=== PATIENT | female | born 1950 ===

== ENCOUNTER 2018-09-24 05:14 | Inpatient (IN) ==
[~2018-09-24 05:14] MED LIST: VANCOMYCIN INJ 1,000 MG in SODIUM CHLORIDE 0.9% 250 ML IV ONE; ceFAZolin 1,000 MG in SYRINGE 1 EACH IV ONE
[2018-09-24] MEDS ORDERED: VANCOMYCIN INJ 1,000 MG in SODIUM CHLORIDE 0.9% 250 ML IV ONE (06:00)
[2018-09-24] MEDS ORDERED: CLINDAMYCIN INJ 900 MG in PREMIX 1 EACH IV ONE (06:00)
[2018-09-24] MEDS: LACTATED RINGERS 1,000 ML IV SCH (06:26)
[2018-09-24] MEDS ORDERED: ACETAMINOPHEN 500 MG TABLET PO ONE (06:33)
[2018-09-24] MEDS ORDERED: GABAPENTIN 400 MG CAPSULE PO ONE (06:33)
[2018-09-24] MEDS ORDERED: diphenhydrAMINE CAP 25 MG CAPSULE PO PRN (07:10)
[2018-09-24] MEDS ORDERED: TEMAZEPAM 7.5 MG CAPSULE PO PRN (07:10)
[2018-09-24] MEDS ORDERED: PROMETHAZINE 25 MG/1 ML VIAL IM PRN (07:10)
[2018-09-24] MEDS ORDERED: MORPHINE 4 MG/1 ML VIAL IV PRN ×3 (07:10→10:00)
[2018-09-24] MEDS ORDERED: oxyCODONE/ACETAMINOPHEN 5-325 MG TABLET PO PRN (07:10)
[2018-09-24] MEDS ORDERED: LACTULOSE 20 GM/30 ML UDCUP PO PRN (07:10)
[2018-09-24] MEDS ORDERED: BISACODYL 10 MG SUPP RECTAL PRN (07:10)
[2018-09-24] MEDS: MELOXICAM 7.5 MG TABLET PO SCH (10:35)
[2018-09-24] MEDS: CHLORTHALIDONE 25 MG TABLET PO SCH (10:35)
[2018-09-24] MEDS: POTASSIUM CHLORIDE 20 MEQ TABLET PO SCH (10:35)
[2018-09-24] MEDS: amLODIPine 10 MG TABLET PO SCH (10:35)
[2018-09-24] MEDS: MULTIVITAMIN (CENTRUM) TABLET PO SCH (10:35)
[2018-09-24] MEDS: DOCUSATE SODIUM 100 MG CAPSULE PO SCH ×2 (10:35→21:19)
[2018-09-24] MEDS: DICLOFENAC 1% GEL 100 GM TUBE TOP SCH ×2 (10:36→22:19)
[2018-09-24] MEDS: oxyCODONE/ACETAMINOPHEN 5-325 MG TABLET PO PRN ×2 (12:55→20:23)
[2018-09-24] MEDS: CLINDAMYCIN INJ 900 MG in PREMIX 1 EACH IV SCH ×2 (14:14→21:19)
[2018-09-24] MEDS: FONDAPARINUX 2.5 MG/0.5 ML SYRINGE SUBCUT SCH (17:42)
[2018-09-25] MEDS: LACTATED RINGERS 1,000 ML IV SCH ×2 (00:13→06:32)
[2018-09-25] MEDS: oxyCODONE/ACETAMINOPHEN 5-325 MG TABLET PO PRN ×5 (01:10→23:12)
[2018-09-25 05:36] LABS: Basophils % 0.2 % (0.0-0.8); Eosinophils % 0.2 % (0.00-10.9); Hematocrit 36.7 VOL% (35.7-47.0); Hemoglobin 12.1 GM/DL (12.0-16.0); Immature Granulocytes % 0.6 %; Immature Granulocytes Absolute 0.05 #; Lymphocytes # 1.3 10*3/uL (1.4-4.0); Lymphocytes % 14.7 % (21.3-54.2); Mean Corpuscular Volume 96.8 FL (87-102); Mean Platelet Volume 10.3 FL (9.6-12.0); Monocytes % 12.1 % (1.7-12.7); Neutrophils % 72.2 % (38.7-73.9); Platelet Count 109 T/CUMM (130-400); Red Blood Count 3.79 MC/CUMM (3.8-5.5); Red Cell Distribution Width 12.3 % (9.3-17.3)
[2018-09-25 05:56] LABS: Calcium 8.6 MG/DL (8.5-10.1); Osmolality,Calculated 277.8 MOS/KG (273-304)
[2018-09-25] MEDS: CHLORTHALIDONE 25 MG TABLET PO SCH (09:00)
[2018-09-25] MEDS: POTASSIUM CHLORIDE 20 MEQ TABLET PO SCH (09:00)
[2018-09-25] MEDS: MULTIVITAMIN (CENTRUM) TABLET PO SCH (09:00)
[2018-09-25] MEDS: MELOXICAM 7.5 MG TABLET PO SCH (09:01)
[2018-09-25] MEDS: DOCUSATE SODIUM 100 MG CAPSULE PO SCH ×2 (09:01→21:56)
[2018-09-25] MEDS: amLODIPine 10 MG TABLET PO SCH (09:01)
[2018-09-25] MEDS: DICLOFENAC 1% GEL 100 GM TUBE TOP SCH ×2 (09:03→21:56)
[2018-09-25] MEDS: FONDAPARINUX 2.5 MG/0.5 ML SYRINGE SUBCUT SCH (18:00)
[2018-09-26 05:45] LABS: Basophils % 0.4 % (0.0-0.8); Eosinophils % 0.4 % (0.00-10.9); Hematocrit 33.1 VOL% (35.7-47.0); Immature Granulocytes % 0.4 %; Immature Granulocytes Absolute 0.03 #; Lymphocytes # 1.4 10*3/uL (1.4-4.0); Lymphocytes % 17.9 % (21.3-54.2); Mean Corpuscular HGB Conc 33.2 GM/DL (32-36); Mean Corpuscular Volume 97.4 FL (87-102); Mean Platelet Volume 10.8 FL (9.6-12.0); Monocytes % 10.1 % (1.7-12.7); Neutrophils % 70.8 % (38.7-73.9); Platelet Count 103 T/CUMM (130-400); Red Cell Distribution Width 12.5 % (9.3-17.3)
[2018-09-26 05:58] LABS: Calcium 8.7 MG/DL (8.5-10.1)
[2018-09-26] MEDS: oxyCODONE/ACETAMINOPHEN 5-325 MG TABLET PO PRN ×2 (07:38→17:42)
[2018-09-26] MEDS: MAGNESIUM HYDROXIDE SUSP 30 ML UDCUP PO PRN ×2 (07:39→17:42)
[2018-09-26] MEDS: DOCUSATE SODIUM 100 MG CAPSULE PO SCH ×2 (10:35→20:45)
[2018-09-26] MEDS: MELOXICAM 7.5 MG TABLET PO SCH (10:36)
[2018-09-26] MEDS: CHLORTHALIDONE 25 MG TABLET PO SCH (10:36)
[2018-09-26] MEDS: amLODIPine 10 MG TABLET PO SCH (10:37)
[2018-09-26] MEDS: MAGNESIUM CHLORIDE 64 MG TABLET PO SCH ×2 (10:37→20:45)
[2018-09-26] MEDS: MULTIVITAMIN (CENTRUM) TABLET PO SCH (10:38)
[2018-09-26] MEDS: POTASSIUM CHLORIDE 20 MEQ TABLET PO SCH (10:38)
[2018-09-26] MEDS: DICLOFENAC 1% GEL 100 GM TUBE TOP SCH ×2 (10:39→20:49)
[2018-09-26] MEDS: FONDAPARINUX 2.5 MG/0.5 ML SYRINGE SUBCUT SCH (17:43)
[2018-09-27] MEDS: oxyCODONE/ACETAMINOPHEN 5-325 MG TABLET PO PRN (04:06)
[2018-09-27] MEDS: DOCUSATE SODIUM 100 MG CAPSULE PO SCH (09:28)
[2018-09-27] MEDS: POTASSIUM CHLORIDE 20 MEQ TABLET PO SCH (09:28)
[2018-09-27] MEDS: CHLORTHALIDONE 25 MG TABLET PO SCH (09:28)
[2018-09-27] MEDS: MULTIVITAMIN (CENTRUM) TABLET PO SCH (09:28)
[2018-09-27] MEDS: MELOXICAM 7.5 MG TABLET PO SCH (09:28)
[2018-09-27] MEDS: MAGNESIUM CHLORIDE 64 MG TABLET PO SCH (09:29)
[2018-09-27] MEDS: amLODIPine 10 MG TABLET PO SCH (09:30)
[2018-09-27] MEDS: DICLOFENAC 1% GEL 100 GM TUBE TOP SCH (09:34)
[2018-09-27 11:43] VITALS: BP 113/65
[2018-09-29] MEDS ORDERED: ERGOCALCIFEROL 50,000 UNIT CAPSULE PO SCH (07:13)
== END 2018-09-27 12:03 | disposition home or self-care (01) | DRG 470 ==
LOC: N.OR 05:14 → N.SDSINP 05:15 → N.3E 09:56
PROVIDERS: ADMIT Orthopaedic Surgery; ATTEND Orthopaedic Surgery